=== PATIENT | female | born 1945 | race Caucasian/White ===

== ENCOUNTER 2018-06-12 13:52 | Emergency (ER) | payer BC ==
[~2018-06-12] VITALS: Ht 149.9 cm; Wt 45.4 kg
== END 2018-06-12 15:30 | disposition home or self-care (01) ==
LOC: ER 13:52
DX: S01.82XA Laceration with foreign body of other part of head, initial encounter (principal); S01.521A Laceration with foreign body of lip, initial encounter; W18.09XA Striking against other object with subsequent fall, initial encounter; Y93.89 Activity, other specified; Y92.89 Other specified places as the place of occurrence of the external cause; Y99.8 Other external cause status

== ENCOUNTER → 2018-06-18 | Emergency (ER) | payer BC ==
[~2018-06-18] VITALS: Ht 149.9 cm; Wt 45.8 kg
== END | disposition left against medical advice (07) ==
LOC: ER 10:55
DX: Z53.20 Procedure and treatment not carried out because of patient's decision for unspecified reasons (principal)